=== PATIENT | male | born 2000 | race Caucasian/White ===

== ENCOUNTER 2022-07-31 07:53 | Outpatient (CLI) | payer OTHER, SELFPAY ==
[2022-07-31 18:41] LABS: Basophils Absolute Auto 0.1 K/mm3 (0.0-0.1); Basophils Percent Auto 0.8 % (0.2-1.2); Eosinophils Absolute Auto 0.2 K/mm3 (0-0.3); Eosinophils Percent Auto 2.7 % (0-4.4); Hematocrit 44.7 % (42.0-52.0); Hemoglobin 15.5 g/dL (14.0-18.0); Immature Granulocyte Absolute 0.01 K/mm3 (0.00-0.031); Immature Granulocyte Percent A 0.2 % (0-0.5); Lymphocytes Absolute Auto 2.16 K/mm3 (0.9-3.2); Lymphocytes Percent Auto 32.5 % (18.3-44.2); Mean Corpuscular HGB Conc 34.7 g/dl (32-36); Mean Corpuscular Hemoglobin 28.3 pg (26-34); Mean Corpuscular Volume 81.6 fl (80-100); Mean Platelet Volume 10.2 fl (7.4-10.4); Monocytes Absolute Auto 0.5 K/mm3 (0.1-0.6); Monocytes Percent Auto 6.9 % (2.6-8.5); Neutrophils Absolute Auto 3.8 K/mm3 (1.3-6.7); Neutrophils Percent Auto 56.9 % (45.5-73.1); Platelet Count Result 263 k/mm3 (150-375); Red Blood Count 5.48 M/mm3 (4.6-6.20); Red Cell Distribution Width 11.9 % (11.5-14.5); White Blood Count 6.6 K/mm3 (4.5-10.0)
[2022-07-31 20:21] LABS: Vitamin D 25 Hydroxy 41.8 ng/mL
[2022-07-31 20:54] LABS: Alanine Aminotransferase 59 U/L (6-50); Albumin Level 4.6 g/dL (3.5-5.1); Alkaline Phosphatase 53 U/L (38-126); Anion Gap 10 mmol/L (8-16); Aspartate Amino Transferase 43 U/L (17-59); Bilirubin,Total 0.7 mg/dL (0.2-1.3); Blood Urea Nitrogen 21 mg/dL (9-20); Calcium 9.8 mg/dL (8.4-10.2); Carbon Dioxide 29 mmol/L (22-30); Chloride 101 mmol/L (98-107); Cholesterol 181 mg/dL (0-200); Estimated Glomerular Filt Rate > 60; Glucose 87 mg/dL (65-110); HDL Direct 49 mg/dL; Potassium 4.2 mmol/L (3.4-5.0); Sodium 140 mmol/L (137-145); Triglycerides 93 mg/dL (<150)
[2022-07-31 21:05] LABS: LDL Cholesterol Direct 98 mg/dL
== END 2022-07-31 07:54 | disposition home or self-care (01) ==
LOC: ANHGOSHLAB 07:55
PROVIDERS: PCP Family Medicine; Visit Provider Family Medicine
DX: Z00.00 Encounter for general adult medical examination without abnormal findings (principal); E78.5 Hyperlipidemia, unspecified; Z13.29 Encounter for screening for other suspected endocrine disorder; E55.9 Vitamin D deficiency, unspecified
CPT/HCPCS: 36415; 80053; 80061; 82306; 84443; 85025

== ENCOUNTER 2023-09-07 08:00 | Outpatient (CLI) | payer OTHER, SELFPAY ==
[2023-09-07 18:49] LABS: Alanine Aminotransferase 74 U/L (6-50); Albumin Level 4.5 g/dL (3.5-5.1); Alkaline Phosphatase 48 U/L (38-126); Anion Gap 5 mmol/L (8-16); Aspartate Amino Transferase 49 U/L (17-59); Bilirubin,Total 0.7 mg/dL (0.2-1.3); Blood Urea Nitrogen 20 mg/dL (9-20); Calcium 9.2 mg/dL (8.4-10.2); Carbon Dioxide 32 mmol/L (22-30); Chloride 101 mmol/L (98-107); Cholesterol 162 mg/dL (0-200); Estimated Glomerular Filt Rate > 60; Glucose 90 mg/dL (65-110); HDL Direct 62 mg/dL; Potassium 4.4 mmol/L (3.4-5.0); Sodium 138 mmol/L (137-145); Triglycerides 134 mg/dL (<150)
[2023-09-07 19:08] LABS: LDL Cholesterol Direct 70 mg/dL
[2023-09-07 19:13] LABS: Basophils Absolute Auto 0.1 K/mm3 (0.0-0.1); Basophils Percent Auto 0.8 % (0.2-1.2); Eosinophils Absolute Auto 0.3 K/mm3 (0-0.3); Eosinophils Percent Auto 4.2 % (0-4.4); Immature Granulocyte Absolute 0.01 K/mm3 (0.00-0.031); Immature Granulocyte Percent A 0.1 % (0-0.5); Lymphocytes Absolute Auto 2.01 K/mm3 (0.9-3.2); Lymphocytes Percent Auto 27.5 % (18.3-44.2); Mean Corpuscular HGB Conc 32.6 g/dl (32-36); Mean Corpuscular Volume 85.8 fl (80-100); Mean Platelet Volume 10.6 fl (7.4-10.4); Monocytes Absolute Auto 0.5 K/mm3 (0.1-0.6); Monocytes Percent Auto 7.2 % (2.6-8.5); Neutrophils Absolute Auto 4.4 K/mm3 (1.3-6.7); Neutrophils Percent Auto 60.2 % (45.5-73.1); Platelet Count Result 242 k/mm3 (150-375); Red Blood Count 5.36 M/mm3 (4.6-6.20); Red Cell Distribution Width 12.8 % (11.5-14.5); White Blood Count 7.3 K/mm3 (4.5-10.0)
[2023-09-07 19:24] LABS: Vitamin D 25 Hydroxy 53.4 ng/mL
== END 2023-09-07 08:01 | disposition home or self-care (01) ==
LOC: ANHGOSHLAB 08:01
PROVIDERS: PCP Family Medicine; Visit Provider Family Medicine
DX: Z00.00 Encounter for general adult medical examination without abnormal findings (principal); Z13.220 Encounter for screening for lipoid disorders; Z13.29 Encounter for screening for other suspected endocrine disorder; E55.9 Vitamin D deficiency, unspecified; E53.8 Deficiency of other specified B group vitamins; F41.8 Other specified anxiety disorders
CPT/HCPCS: 36415; 80053; 80061; 82306; 82607; 84443; 85025

== ENCOUNTER 2024-09-06 08:01 | Outpatient (CLI) | payer OTHER, SELFPAY ==
[2024-09-06 16:50] LABS: Basophils Absolute Auto 0.1 K/mm3 (0.0-0.1); Basophils Percent Auto 0.9 % (0.2-1.2); Eosinophils Absolute Auto 0.2 K/mm3 (0-0.3); Eosinophils Percent Auto 3.8 % (0-4.4); Hematocrit 44.8 % (42.0-52.0); Hemoglobin 15.3 g/dL (14.0-18.0); Immature Granulocyte Absolute 0.01 K/mm3 (0.00-0.031); Immature Granulocyte Percent A 0.2 % (0-0.5); Lymphocytes Percent Auto 34.1 % (18.3-44.2); Mean Corpuscular HGB Conc 34.2 g/dl (32-36); Monocytes Absolute Auto 0.5 K/mm3 (0.1-0.6); Monocytes Percent Auto 8.1 % (2.6-8.5); Neutrophils Percent Auto 52.9 % (45.5-73.1); Platelet Count Result 244 k/mm3 (150-375); Red Blood Count 5.27 M/mm3 (4.6-6.20); White Blood Count 5.6 K/mm3 (4.5-10.0)
[2024-09-06 16:53] LABS: Alanine Aminotransferase 116 U/L (6-50); Albumin Level 4.4 g/dL (3.5-5.1); Alkaline Phosphatase 47 U/L (38-126); Anion Gap 8 mmol/L (4-12); Aspartate Amino Transferase 73 U/L (17-59); Bilirubin,Total 0.8 mg/dL (0.2-1.3); Blood Urea Nitrogen 17 mg/dL (9-20); Calcium 9.4 mg/dL (8.4-10.2); Carbon Dioxide 31 mmol/L (22-30); Chloride 100 mmol/L (98-107); Cholesterol 182 mg/dL (0-200); Estimated Glomerular Filt Rate > 60; Glucose 76 mg/dL (65-110); HDL Direct 61 mg/dL; Potassium 4.1 mmol/L (3.4-5.0); Sodium 139 mmol/L (137-145); Triglycerides 72 mg/dL (<150)
[2024-09-06 17:04] LABS: LDL Cholesterol Direct 82 mg/dL
[2024-09-06 17:15] LABS: Vitamin D 25 Hydroxy 44.8 ng/mL
== END 2024-09-06 08:02 | disposition home or self-care (01) ==
LOC: ANHGOSHLAB 08:02
PROVIDERS: PCP Family Medicine; Visit Provider Family Medicine
DX: Z00.00 Encounter for general adult medical examination without abnormal findings (principal); Z13.220 Encounter for screening for lipoid disorders; Z13.29 Encounter for screening for other suspected endocrine disorder; R73.9 Hyperglycemia, unspecified; E53.8 Deficiency of other specified B group vitamins; E55.9 Vitamin D deficiency, unspecified; F41.8 Other specified anxiety disorders
CPT/HCPCS: 36415; 80053; 80061; 82306; 82607; 83036; 84443; 85025

== ENCOUNTER 2024-09-19 07:47 | Outpatient (CLI) | payer OTHER, SELFPAY ==
--- NOTE | ~2024-09-19 | US_ITS ---
EXAMINATION: US right upper quadrant DATE: 09/19/2024 08:16 INDICATION: Abnormal liver function tests TECHNIQUE: Multiple grayscale and Doppler ultrasound images of the abdomen were obtained. COMPARISON: None FINDINGS: The pancreatic head and body are normal in appearance. The pancreatic tail is not visualized. The pr oximal to mid inferior vena cava is normal. Visualized portion of the proximal abdominal aorta is nor mal. Liver has normal echogenicity and contour, with a smooth surface. No liver lesion identified. No intrahepatic biliary duct dilation suspected. Portal venous flow was seen in the hepatopetal, normal direction and has normal Doppler waveform. The gallbladder is normal in appearance. There is no cho lelithiasis. The common bile duct measures 4 mm, which is normal. Sonographic Lawrence sign was reporte d as negative by the pearl hand.Visualized portion of the right kidney demonstrates normal contour a nd echogenicity with no hydronephrosis. IMPRESSION: 1. Normal right upper quadrant ultrasound. Reviewed, dictated and finalized at location A.
== END 2024-09-19 07:48 | disposition home or self-care (01) ==
LOC: MICIMG 07:47
PROVIDERS: PCP Family Medicine; Visit Provider Family Medicine
DX: R79.89 Other specified abnormal findings of blood chemistry (principal)
CPT/HCPCS: 76705

== ENCOUNTER 2024-09-26 08:21 | Outpatient (CLI) | payer OTHER, SELFPAY ==
[2024-09-26 18:54] LABS: INR 0.9
[2024-09-26 20:05] LABS: Iron 155 ug/dL (49-181)
[2024-09-26 20:18] LABS: Percent Iron Saturation 59 % (20-50)
[2024-09-26 21:13] LABS: Hepatitis B Surface Antigen Negative (Negative)
[2024-09-26 21:19] LABS: HAV RESULT Negative (Negative); Hepatitis B Core IgM Result Negative (Negative)
[2024-09-26 21:31] LABS: Hepatitis B Surface Anti Res Negative; Hepatitis C Virus Antibody Negative (Negative)
[2024-09-27 09:04] LABS: GGT 23 U/L (3-70)
[2024-09-27 12:13] LABS: Hepatitis A Antibody Total NON-REACTIVE (NON-REACTIVE)
[2024-09-29 20:48] LABS: Actin Antibody (IgG) <20 U (<20)
[2024-09-30 09:18] LABS: LKM 1 Antibody <=20.0 U (<=20.0)
[2024-10-01 03:08] LABS: Alpha-1-Antitrypsin, QN 119 mg/dL (83-199); Ceruloplasmin 19 mg/dL (14-30)
[2024-10-02 12:37] LABS: Mitochondrial (M2) Ab (IgG) <20.0 U
== END 2024-09-26 08:22 | disposition home or self-care (01) ==
LOC: ANHGOSHLAB 08:23
PROVIDERS: PCP Family Medicine; Visit Provider Nurse Practitioner Family
DX: R79.89 Other specified abnormal findings of blood chemistry (principal)
CPT/HCPCS: 36415; 80074; 81596; 82103; 82390; 82728; 82977; 83520; 83540; 83550; 85610; 86038; 86039; 86364; 86376; 86706; 86708

== ENCOUNTER 2024-10-23 08:01 | Outpatient (CLI) | payer OTHER, SELFPAY | END 2024-10-23 08:02 | disposition home or self-care (01) | LOC: ANHGOSHLAB 08:02 | PROVIDERS: PCP Family Medicine; Visit Provider Nurse Practitioner Family | DX: R79.89 Other specified abnormal findings of blood chemistry (principal); R89.9 Unspecified abnormal finding in specimens from other organs, systems and tissues | CPT/HCPCS: 36415; 81256 ==

== ENCOUNTER 2024-12-28 14:13 | Outpatient (CLI) | payer OTHER, SELFPAY ==
--- OUTSIDE RECORDS SUMMARY | 2024-12-28 14:20 | XMS_ITS | Patient Health Summary ---
Author Organization [facility] Address [address] [place] [address] Care Team Providers Care Piece Jobber Name Role Phone None, Physician Primary Care Provider Unavailabl e Note from [facility],non-owned Affiliates and Associated Physician Practices is amultiple site organization consisting of ambulatory clinics and hospital sitesin [place], [place], [place] and [place]. This disclosure is being madepursuant to the Care Everywhere program and may not contain all information available regarding this patient. Last updated 18.[facility] Social History Tobacco Use Types Packs/Day Years Used Date Smoking Tobacco: Never Assessed Sex and Gender Information Value Date Recorded Sex Assigned at Not on file Gender Identity Not on file Sexual Orientation Not on file Procedures * IL LIVER ELASTOGRAPHY(Performed 10/11/2024) Performed for Other specified abnormal findings of blood chemistry * DERMATOPATHOLOGY(Performed 04/12/2012) Results * PROC FIBROSCAN (10/11/2024 8:40 AM RAISIN SEPARATOR OPERATOR) Narrative Alan Jerome MD - 10/11/2024 8:40 AM RAISIN SEPARATOR OPERATOR Alan Jerome MD 10/14/2024 12:02 PM Diagnosis: Abnormal findings of blood chemistry RN verified patient is NPO for prior 3 hours. Procedure explained. Date of Exam: 10/11/2024 Liver Stiffness: (LSM, kPa) median: 2.6 IQR/Median% (ideally < 30%): 14% CAP (controlled attenuation parameter): 264 Technical Difficulty: None Ordering Provider: Wai Luu CNP Fibroscan interpretation: I have personally reviewed the Fibroscan report and associated tracings. The calculated Liver Stiffness Measurement (LSM, kPa) indicates that: The probability of advanced liver fibrosis is: low. The loss of ultrasound signal, (controlled attenuation parameter, CAP [dB/m]), indicates that the probability of hepatic steatosis is: moderate. Alan Decker MD The following criteria are used to indicate the probability of advanced (stage 3-4) fibrosis: < 7.0 kPa: low 7.0-8.9 kPa: low to moderate 9.0-14.9 kPa: moderate 15-20 kPa: high > 20 kPa: very high Liver stiffness > 20 kPa is also associated with a high probability of complications of portal hypertension including varices and ascites. Liver stiffness > 50 kPa is associated with a high risk of variceal bleeding. These interpretations are based on the following published data: Nelli PJ, Anamika M, Jewels M, et al. Accuracy of FibroScan controlled attenuation parameter and liver stiffness measurement in assessing steatosis and fibrosis in patients with nonalcoholic fatty liver disease. Gastroenterology 2019;156:4034-4060. Ti NOVAK, Min R, Van Natta ML, et al. Vibration-controlled transient elastography to assess fibrosis and steatosis in patients with nonalcoholic fatty liver disease. Clin Gastroenterol Hepatol 2019;17:156-163. Note that scores have been developed that incorporate the Fibroscan liver stiffness measurement from large cohorts of patients with liver biopsies to further refine the ability of Fibroscan to identify patients with MASH and advanced fibrosis. These include the FAST (Fibroscan-AST) score (Louann, 202) and the Agile3+ and Agile4 scores (Donovan, 202). Louann TA, Van Natta ML, Miracle M, Raul A, et al. Validation of the accuracy of the FAST score for detecting patients with at-risk nonalcoholic steatohepatitis (BURKETT) in a [facility] cohort and comparison to other non-invasive algorithms. PLoS ONE (2021) 17: y6378827. Donovan AJ, Eva J, Patrick ZM, et al. Enhanced diagnosis of advanced fibrosis and cirrhosis in individuals with NAFLD using FibroScan-based Agile scores. J Hepatol (2022) 78: 247-259. Fibroscan LSM can also be used with laboratory parameters without formulas to assess prognosis. According to the Baveno-VII criteria (de Franchis, 202), Fibroscan LSM <=15 kPa plus a platelet count of >=405a154/L rules out clinically significant portal hypertension (sensitivity and negative predictive value >90%) in patients with compensated advanced chronic liver disease. Love R, Yuliet J, Jeovany-Jose M G, Erika T, Josef Fajardo on behalf of the [facility] VII Faculty. [facility]--Renewing consensus in portal hypertension. J Hepatol (2021) 76: 959-974 Assessing the likelihood of advanced fibrosis in patients with intermediate liver stiffness measurement (LSM) by Fibroscan (e.g., 8-15 kPa) can be improved by also calculating the FIB-4 score (Abner et al. Hepatology Communications 2019;3:9050-2883) or NAFLD Fibrosis score (Pendleton et al. Clinical Gastroenterology and Hepatology 2019;17:5607-3494 using routine clinical data. Note: 1. Fibroscan cannot reliably identify earlier stages of fibrosis (ie distinguish F0 from F1 and F2) and thus a histologic stage cannot be predicted from the Fibroscan reading. 2. Liver stiffness can be increased by factors other than fibrosis including passive congestion, infiltrative processes, active alcoholism, recent moderate alcohol consumption in the 2 weeks before the exam, biliary obstruction and marked inflammation. The interpretation of the Fibroscan result provided above may not have taken such clinical factors into account. Disease etiology also influences Fibroscan cutoff values for fibrosis stages and the following cutoffs have been proposed (Valentin et al, Clin Gastro Hepatol 2015; 13:27-36): Cutoffs for Stage 3 and Stage 4 fibrosis respectively: Hepatitis B: >9 and >11.7 kPa Hepatitis C: >9.5 and >12.5 kPa HCV-HIV: >11 and >14 kPa Cholestatic liver diseases: >10 and >17.9 kPa MASLD/MASH: >10 and >14 kPa CAP estimates of steatosis: normal <200 dB/m mild 200 to 250 dB/m moderate 250-290 dB/m substantial > 290 dB/m (Note that Fibroscan is not a quantitative measure of liver fat.) These criteria are estimates and may change as additional supporting data becomes available. 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 Check margins. GROSS DESCRIPTION: Received is one formalin filled container labeled with the patient's name and designated left upper back. The specimen consists of a [id number] piece of skin. The margin is inked green. The specimen is bisected lengthwise and submitted in 1 cassette. Jar 0. MICROSCOPIC DESCRIPTION: There are nests of melanocytes within the dermis. Some of these melanocytes are concentrated around blood vessels and adnexal structures. This lesion is not present at the sampled margin of the specimen. Final Diagnosis performed by Liz Amin M.D. Electronically signed 04/14/2012 12:40:53PM [facility] Comment: Performed at: Dermatopathology Laboratory [facility] - Department of Dermatology [address] [place] [address], Room [address] [place] [address] Phone number: [phone] Toll Free: [phone] FAX: [phone] 04/12/2012 04/13/2012 Enrico Ruiz MD LAB - PATHOLOGY/CYTO LOGY ORDERABLES [facility] [address] [place] [address]. 5[address] Floor [address] [phone] Care Teams Piece Jobber Relationship Specialty Start Date End Date None, Physician [address] [place] [address] PCP - General 10/11/24
--- OUTSIDE RECORDS SUMMARY | 2024-12-28 14:20 | XMS_ITS | Clinical Summary ---
Author Organization [facility] Address [address] [place] [address] Care Team Providers Care Executive Relations Specialist Name Role Phone None, Physician Primary Care Provider Unavailabl e Source Comments [facility],non-owned Affiliates and Associated Physician Practices is amultiple site organization consisting of ambulatory clinics and hospital sitesin [place], [place], [place] and [place]. This disclosure is being madepursuant to the Care Everywhere program and may not contain all information available regarding this patient. Last updated 18.[facility] Encounters Date Type Department Care Team Description 10/11/2024 8:00 AM CUSTOM CLOTHIER Procedure visit [facility] - [address] [place] [id number] None, Physician Other specified abnormal findings of blood chemistry 10/11/2024 Travel 10/06/2024 Travel from Last 3 Months Social History Tobacco Use Types Packs/Day Years Used Date Smoking Tobacco: Never Assessed Sex and Gender Information Value Date Recorded Sex Assigned at Not on file Gender Identity Not on file Sexual Orientation Not on file Plan of Treatment Health Maintenance Due Date Last Done Comments HIV SCREENING 2013 HPV VACCINE (1 - Male 3-dose series) 2013 HEPATITIS C SCREENING 11/06/2016 DTAP/TDAP/TD VACCINES (1 - Tdap) 2017 HEPATITIS B VACCINE (1 of 3 - 19+ 3-dose series) 2017 COVID-19 VACCINE (1 - 2023-2 5 season) 2024 INFLUENZA VACCINE (#1) 2024 DEPRESSION SCREENING 11/22/2024 ZOSTER VACCINE (1 of 2) 2048 HIB VACCINE Aged Out No longer eligi ble based on patient's age to complete this topic MENINGOCOCCAL (Group B) VACCINE Aged Out No longer eligible based on patient's age to complete this topic MENINGOCOCCAL VACCINE Aged Out No grupo alexis eligible based on patient's age to complete this topic PNEUMOCOCCAL VACCINE Aged Out No long er eligible based on patient's age to complete this topic Procedures Procedure Name Priority Date/Time Associated Diagnosis Comments DC LIVER ELASTOGRAPHY Routine 10/11/2024 8:40 AM CUSTOM CLOTHIER Other specified abnormal findings of blood chemistry from Last 3 Months Results * PROC FIBROSCAN (10/11/2024 8:40 AM CUSTOM CLOTHIER) Narrative Alan Jerome MD - 10/11/2024 8:40 AM CUSTOM CLOTHIER Alan Jerome MD 10/14/2024 12:02 PM Diagnosis: [...] patients with nonalcoholic fatty liver disease. Gastroenterology 2019;156:7886-1039. Ti NOVAK, Min R, Van Natmaximino ML, et al. Vibration-controlled transient elastography to [...] Agile4 scores (Donovan, 202). Louann TA, Van Natmaximino ML, Miracle M, Raul A, et al. Validation of the accuracy of the FAST score for detecting patients with at-risk nonalcoholic steatohepatitis (BURKETT) in a [place] cohort and comparison to other non-invasive algorithms. PLoS ONE (2021) 17: [id number]. Donovan AJ, Eva J, Patrick ZM, et al. Enhanced diagnosis of advanced fibrosis and cirrhosis in individuals with NAFLD using FibroScan-based Agile scores. J Hepatol (2022) 78: 247-259. Fibroscan LSM can also be used with laboratory parameters without formulas to assess prognosis. According to the Baveno-VII criteria (de Adrianne, 202), Fibroscan LSM <=15 kPa plus a platelet count of >=463h740/L rules out clinically significant portal hypertension (sensitivity and negative predictive value >90%) in patients with compensated advanced chronic liver disease. Love R, Yuliet J, Jeovany-Jose M G, Rekaroline T, Josef C on behalf of the B[employer]o VII Faculty. [employer] VII--Renewing consensus in portal hypertension. J Hepatol (2021) 76: 959-974 Assessing the likelihood of advanced fibrosis in patients with intermediate liver stiffness measurement (LSM) by Fibroscan (e.g., 8-15 kPa) can be improved by also calculating the FIB-4 score (Abner et al. Hepatology Communications 2019;3:9773-8364) or NAFLD Fibrosis score (Pendleton et al. Clinical Gastroenterology and Hepatology 2019;17:5886-8249 using routine clinical data. Note: 1. Fibroscan [...] additional interpretive data was last updated 03/27/23.) [email or web address] Physician None PROCEDURE/MINOR SURG ICAL ORDERABLES from Last 3 Months Care Teams Executive Relations Specialist Relationship Specialty Start Date End Date None, Physician [address] [place] [address] PCP - General 10/11/24
--- OUTSIDE RECORDS SUMMARY | 2024-12-28 14:20 | XMS_ITS | Continuity of Care Document ---
Author Organization [facility] Address [address] [place] [address] Phone Care Team Providers Care Syrup Mixer Assistant Name Role Phone Roberto MCKAY, Nithya Unavailable Unavailable Allergies, Adverse Reactions, Alerts Substance Reaction Status Criticality No Known Allergies Active No Inform ation Medications Medication Instructions Dosage Effective Dates (start - stop) Status Comments Zipsor 25 mg capsule take 1 capsule by o ral route 4 times every day 25 MG - Active Procedures Procedure Date Office/outpatient visit,est, mod 2018 Postop followup visit Physical Tx excercises each 15 min Physical Tx excercises each 15 min Physical Tx excercises each 15 min Physical Tx excercises each 15 min Physical Tx excercises each 15 min Physical Tx excercises each 15 min Physical Tx excercises each 15 min Physical Tx excercises each 15 min Physical Tx excercises each 15 min Physical Tx excercises each 15 min Neuromuscular re-edu, ea15 min 19 Physical Tx excercises each 15 min Physical Tx excercises each 15 min Physical Tx excercises each 15 min Physical Tx excercises each 15 min Physical Tx excercises each 15 min Neuromuscular re-edu, ea15 min Physical Tx excercises each 15 min Physical Tx excercises each 15 min Postop followup visit Physical Tx excercises each 15 min Physical Tx excercises each 15 min Physical Tx excercises each 15 min Physical Tx excercises each 15 min Physical Tx excercises each 15 min Physical Tx excercises each 15 min Physical Therapy Evaluation Low Complexi ty Physical Tx excercises each 15 min Knee Reconst Of Ligaments Extra-articula r Knee Repair Primary Torn collateral Liga ment/capsule PA At Surgery PA At Surgery Office/outpatient visit,[facility] 2017 Advance Directives Directive Yes / No Effective Date File Name No Information Encounters Encounter Description Practice Location Reason(s) For Visit Diagnoses Date Provider Providers Copied on Encounter Office/outpa tient visit,est, mod [facility], [address] [place] [address], [id number], tel:[phone] [place] [facility] Sprain of medial collateral ligament of left knee, subsSprain of medial collateral ligament of left knee, init [address] [facility], [place], [id number] , . tel:[phone] [facility], [address] [place] [address], [id number], tel:[phone] [place] [facility] Patellar instability of left kneeSprain of medial collateral ligament of left knee, subs Fe- [address] [facility] [address], [place], [id number] , . tel:[phone] [facility], [address] [place] [address], [id number], tel:[phone] [place] Feb-2 7-201 9 [address], [place], [id number] , [place]. tel: [phone] Referring Provider: Nithya Schuster, [address] [place], [address] . tel:[phone] [facility], [address] [place] [address], [id number], tel:[phone] [place] Feb-2 5-201 9 [place] [place], [place], [id number] , [place]. tel: [phone] Referring Provider: Nithya Schuster, [address] [place], [address] . tel:[phone] [facility], [address] [place] [address], [id number], tel:[phone] [place] Feb-2 2-201 9 [place]. [address] [place] [address], [id number] , [place]. tel: [phone] Referring Provider: Nithya Schuster, [address] [place], [address] . tel:[phone] [facility], [address] [place] [address], [id number], tel:[phone] [place] Feb-2 0-201 9 [place], [place], [id number] , [place]. tel: [phone] Referring Provider: Nithya Schuster, [address] [place] [address], [address] . tel:[phone] [facility], [address] [place] [address], [id number], tel:[phone] [place] Feb-1 8-201 9 [place]. [address] [place] [address], [id number] , [place]. tel: [phone] Referring Provider: Nithya Schuster, [address] [place], [address] . tel:[phone] [facility], [address] [place] [address], [id number], [place] tel:[phone] [place] Feb-1 5-201 9 [place] [place], [place], [id number] , [place]. tel: [phone] Referring Provider: Nithya Schuster, [address] [place], [address] . tel:[phone] [facility], [address] [place] [address], [id number], tel:[phone] [place] Feb-1 3-201 9 [place]. [address] [place] [address], [id number] , [place]. tel: [phone] Referring Provider: Nithya Schuster, [address] [place], [address] . tel:[phone] [facility], [address] [place] [address], [id number], tel:[phone] [place] Feb-1 1-201 9 [place]. [address] [place] [address], [id number] , [place]. tel: [phone] Referring Provider: Nithya Schuster, [address] [place], [address] . tel:[phone] [facility], [address] [place] [address], [id number], [place] tel:[phone] [place] Feb-0 8-201 9 [place]. [address] [place] [address], [id number] , [place]. tel: [phone] Referring Provider: Nithya Schuster, [address] [place], [address] . tel:[phone] [facility], [address] [place] [address], [id number], tel:[phone] [place] Feb-0 6-201 9 [place]. [address] [place] [address], [id number] , . tel: [phone] Referring Provider: Nithya Schuster, [address] [place] [address], [address] . tel:[phone] [facility], [address] [place] [address], [id number], tel:[phone] [place] Feb-0 4-201 9 [place]. [address] [place] [address], [id number] , . tel: [phone] Referring Provider: Nithya Schuster, [address] [place] [address], [address] . tel:[phone] [facility], [address] [place] [address], [id number], tel:[phone] [place] Feb-0 1-201 9 [place]. [address] [place] [address], [id number] , . tel: [phone] Referring Provider: Nithya Schuster, [address] [place] [address], [address] . tel:[phone] [facility], [address] [place] [address], [id number], tel:[phone] [place] Manjinder-3 0-201 9 [place] [place]. [address] [place] [address], [id number] , [place]. tel: [phone] Referring Provider: Nithya Schuster, [address] [place] [address], [address] . tel:[phone] [facility], [address] [place] [address], [id number], tel:[phone] [place] [address] [place]. [address], [place], [id number] , [place]. [phone] Referring Provider: Nithya Schuster, [address] [place], [address] . tel:[phone] [facility], [address] [place] [address], [id number], tel:[phone] [place] 9 [place]. [address], [place], [id number] , [place]. [phone] Referring Provider: Nithya Schuster, [address] [place], [address] . tel:[phone] [facility], [address] [place] [address], [id number], tel:[phone] PT [address]. [address], [place], [id number] , [place]. [phone] Referring Provider: Nithya Schuster, [address] [place], [address] . tel:[phone] [facility], [address] [place] [address], [id number], tel:[phone] [place] Other internal derangements of left knee 9 [address]. [address], [place], [id number] , [place]. tel:[phone] Referring Provider: Nithya Schuster, [address] [place] [address], [address] . tel:[phone] [facility], [address] [place] [address], [id number], tel:[phone] [place] [facility] Tear of medial collateral ligament of left knee, subsequent encounterSprain of medial collateral ligament of left knee, init [address] [facility], [place], [id number] , [place]. tel: [phone] [facility], [address] [place] [address], [id number], [place] tel:[phone] 9 [place]. [address], [place], [id number] , [place]. tel: [phone] Referring Provider: Nithya Schuster, [address] [place], [address] . tel:[phone] [facility], [address] [place] [address], [id number], [place] tel:[phone] [place] 9 [address]. [address], [place], [id number] , [place]. tel: [phone] Referring Provider: Nithya Schuster, [address] [place], [address] . tel:[phone] [facility], [address] [place] [address], [id number], [place] tel:[phone] [place] 8 [place]. [address], [place], [id number] , [place]. tel: [phone] Referring Provider: Nithya Schuster, [address] [place], [address] . tel:[phone] [facility], [address] [place] [address], [id number], [place] tel:[phone] [place] 8 [address]. [address], [place], [id number] , [place]. tel: [phone] Referring Provider: Nithya Schuster, [address] [place], [address] . tel:[phone] [facility], [address] [place] [address], [id number], tel:[phone] [place] Oct-1 0-201 8 [place]. [address] [place] [address], [id number] , . tel:[phone] Referring Provider: Nithya Schuster, [address] [place] [address], [address] . tel:[phone] [facility], [address] [place] [address], [id number], tel:[phone] [place] Other internal derangements of left knee Oct-0 7-201 8 [place]. [address] [place] [address], [id number] , . tel:[phone] Referring Provider: Nithya Schuster, [address] [place] [address], [address] . tel:[phone] [facility], [address] [place] [address], [id number], tel:[phone] [place] Other internal derangements of left knee Oct-0 5-201 8 [place]. [address] [place] [address], [id number] , . [phone] Referring Provider: Nithya Schuster, [address] [place] [address], [address] . tel:[phone] [facility], [address] [place] [address], [id number], tel:[phone] [facility] No Information 3 0-201 8 Roberto Barriga. [address] [place] [address], [id number] , . tel:[phone] Referring Provider: Nithya Schuster, [address] [place] [address], [address] . tel:[phone] Office/outpa tient visit,[facility], [address] [place] [address], [id number], tel:[phone] [facility] Complete tear of medial collateral ligament of left knee, initial encounterDislocat ion of left patella, initial encounterComplete tear of medial collateral ligament of lefDislocation of left patella, initial encounterDislocat ion of left patella, initial encounter 8 [facility]. [address] [place] [address], [id number] , . tel:[phone] Family History Family Member Type Diagnosis Age At Onset No Information Payers Payer name Insurance type Covered constitution party ID Mitesh cortes(reagan [employer] CI [id number] [facility] Insurance CI [id number] Social History Type Description Quantity Date Captured Comments Alcohol Use Details No Caffeine Use Details No Tobacco Use Status No Information Smoking Status Never smoker Non-Smoking Tobacco Use Details : No Details Available : No Details Available Sex Male Vital Signs Date / Time: Height Weight BMI Pulse Rate Blood Pressure Temperature Respiratory Rate Body Surface Area Head Circumference Head Circ. Percentile Wt./David. Percentile BMI percentile Pulse Ox Inhaled Ox 8:48 AM 76.00 in 129.274 kg (285.00 lbs) 34.6 9 kg/m eter (2) 2.63 meter(2) Chief Complaint And Reason For Visit No Information Reason For Referral Reason For Referral No Information History Of Present Illness Encounter Date Complaint History Of Prese nt Illness No Information Functional Status Date Functional Assessmen t No Information Instructions Date Instruction Additional Infor mation No Information Assessments Type Assessment Date assessment Sprain of medial collateral liga ment of left knee, subs assessment Sprain of medial collateral liga ment of left knee, init Patient Care Teams Name Effective Dates (start - stop) Status Members No Information
--- OUTSIDE RECORDS SUMMARY | 2024-12-28 14:20 | XMS_ITS | Referral Summary ---
Author Organization [facility] Address [address] [place] [address] Care Team Providers Care Eyelet Riveter Name Role Phone None, Physician Primary Care Provider Unavailabl e Source Comments [facility],non-owned Affiliates and Associated Physician Practices is amultiple site organization consisting of ambulatory clinics and hospital sitesin [place], [place], [place] and [place]. This disclosure is being madepursuant to the Care Everywhere program and may not contain all information available regarding this patient. 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 Procedure visit [facility] - [address] [place] [address] None, Physician Other specified abnormal findings of blood chemistry 10/06/2024 Travel from Last 3 Months Social History Tobacco Use Types Packs/Day Years Used Date Smoking Tobacco: Never Assessed Sex and Gender Information Value Date Recorded Sex Assigned at Not on file Gender Identity Not on file Sexual Orientation Not on file Plan of Treatment Not on file Procedures Procedure Name Priority Date/Time Associated Diagnosis Comments PA LIVER ELASTOGRAPHY Routine 10/11/2024 8:40 AM FURNACE INSTALLER Other specified abnormal findings of blood chemistry from Last 3 Months Results * PROC FIBROSCAN (10/11/2024 8:40 AM FURNACE INSTALLER) Narrative Alan Jerome MD - 10/11/2024 8:40 AM FURNACE INSTALLER Alan Jerome MD 10/14/2024 12:02 PM Diagnosis: [...] patients with nonalcoholic fatty liver disease. Gastroenterology 2019;156:5941-4067. Ti NOVAK, Min R, Van Esteban PICKERING, et al. Vibration-controlled transient elastography to assess [...] These include the FAST (Fibroscan-AST) score (Louann, 2021) and the Agile3+ and Agile4 scores (Donovan, 2022). Louann TA, Van Natmaximino ML, Miracle Oswald, Raul A, et al. Validation of the accuracy of the FAST score for detecting patients with at-risk nonalcoholic steatohepatitis (BURKETT) in a [place] cohort and comparison to other non-invasive algorithms. PLoS ONE (2021) 17: v9532540. Donovan ARANGO, Eva Smith, Patrick ZM, et al. Enhanced diagnosis of advanced fibrosis and cirrhosis in individuals with NAFLD using FibroScan-based Agile scores. J Hepatol (2022) 78: 247-259. Fibroscan LSM can also be used with laboratory parameters without formulas to assess prognosis. According to the Baveno-VII criteria (Love, 202), Fibroscan LSM <=15 kPa plus a platelet count of >=319j324/L rules out clinically significant portal hypertension (sensitivity and negative predictive value >90%) in patients with compensated advanced chronic liver disease. Love R, Yuliet J, Jeanne G, Erika T, Josef Fajardo on behalf of the Baveno VII Faculty. Baveno VII--Renewing consensus in portal hypertension. J Hepatol (2021) 76: 959-974 Assessing the likelihood of advanced fibrosis in patients with intermediate liver stiffness measurement (LSM) by Fibroscan (e.g., 8-15 kPa) can be improved by also calculating the FIB-4 score (Yemiuke et al. Hepatology Communications 2019;3:1759-8927) or NAFLD Fibrosis score (Pendleton et al. Clinical Gastroenterology and Hepatology 2019;17:3306-0930 using routine clinical data. Note: 1. Fibroscan [...] additional interpretive data was last updated 03/27/23.) [email or web address] Physician None PROCEDURE/MINOR SURG ICAL ORDERABLES from Last 3 Months Care Teams Eyelet Riveter Relationship Specialty Start Date End Date None, Physician [address] [place] [address] PCP - General 10/11/24
[2024-12-28 14:23] LABS: Basophils Absolute Auto 0.1 K/mm3 (0.0-0.1); Basophils Percent Auto 0.7 % (0.2-1.2); Eosinophils Absolute Auto 0.2 K/mm3 (0-0.3); Eosinophils Percent Auto 3.2 % (0-4.4); Hematocrit 45.5 % (42.0-52.0); Hemoglobin 15.5 g/dL (14.0-18.0); Immature Granulocyte Absolute 0.01 K/mm3 (0.00-0.031); Immature Granulocyte Percent A 0.1 % (0-0.5); Lymphocytes Absolute Auto 2.08 K/mm3 (0.9-3.2); Lymphocytes Percent Auto 30.6 % (18.3-44.2); Mean Corpuscular HGB Conc 34.1 g/dl (32-36); Mean Corpuscular Hemoglobin 28.2 pg (26-34); Mean Corpuscular Volume 82.7 fl (80-100); Mean Platelet Volume 9.5 fl (7.4-10.4); Monocytes Absolute Auto 0.5 K/mm3 (0.1-0.6); Monocytes Percent Auto 7.6 % (2.6-8.5); Neutrophils Absolute Auto 3.9 K/mm3 (1.3-6.7); Neutrophils Percent Auto 57.8 % (45.5-73.1); Platelet Count Result 260 k/mm3 (150-375); Red Cell Distribution Width 11.9 % (11.5-14.5); White Blood Count 6.8 K/mm3 (4.5-10.0)
[2024-12-28 16:27] LABS: Iron 238 ug/dL (49-181)
[2024-12-28 16:31] LABS: Alanine Aminotransferase 64 U/L (6-50); Albumin Level 4.8 g/dL (3.5-5.1); Alkaline Phosphatase 54 U/L (38-126); Anion Gap 9 mmol/L (4-12); Aspartate Amino Transferase 56 U/L (17-59); Bilirubin,Total 0.8 mg/dL (0.2-1.3); Blood Urea Nitrogen 16 mg/dL (9-20); Calcium 9.9 mg/dL (8.4-10.2); Carbon Dioxide 31 mmol/L (22-30); Chloride 100 mmol/L (98-107); Estimated Glomerular Filt Rate > 60; Glucose 98 mg/dL (65-110); Potassium 4.7 mmol/L (3.4-5.0); Sodium 140 mmol/L (137-145)
[2024-12-28 16:37] LABS: Percent Iron Saturation 94 % (20-50)
== END 2024-12-28 14:14 | disposition home or self-care (01) ==
LOC: ANHLAB 14:15
PROVIDERS: PCP Family Medicine; Visit Provider Internal Medicine Hematology & Oncology
DX: E83.110 Hereditary hemochromatosis (principal)
CPT/HCPCS: 36415; 80053; 82728; 83540; 83550; 85025